=== PATIENT | female | born 1995 | race Caucasian/White ===

== ENCOUNTER 2017-12-11 01:30 | Emergency (ER) | payer OTHER ==
[2017-12-11] MEDS ORDERED: NS 0.9% 1000 ML* 1,000 ML IV ONE (02:36)
[2017-12-11 02:40] LABS: Urine Appearance Clear; Urine Blood Negative (Negative); Urine Color Yellow; Urine Ketones Trace (Negative); Urine Protein Negative (Negative); Urine Specific Gravity 1.029 (1.010-1.030); Urine Urobilinogen Negative (Negative)
[2017-12-11 02:41] LABS: ABS Basophils 0.1 10^3/ul (0-0.2); ABS Eosinophils 0.1 10^3/ul (0-0.6); ABS Lymphocytes 1.5 10^3/ul (1.0-4.8); ABS Monocytes 0.6 10^3/ul (0-0.8); ABS Neutrophils 6.7 10^3/ul (1.5-7.7); ABS Nucleated RBC 0 10^3/ul; Eosinophil % 0.6 % (0-6); Hematocrit 40 % (35-47); Hemoglobin 13.1 g/dl (12.0-16.0); Lymphocyte % 16.6 % (25-47); Mean Corpuscular HGB Conc 33 g/dl (31-36); Mean Corpuscular Hemoglobin 26 pg (27-31); Mean Corpuscular Volume 80 fL (80-97); Mean Platelet Volume 9.5 um3 (7.4-10.4); Nucleated Red Blood Cells % 0; Platelet Count 269 10^3/ul (150-450); Red Blood Count 5.01 10^6/ul (4.0-5.4); Red Cell Distribution Width 16 % (10.5-15)
[2017-12-11 03:35] LABS: EGFR Non-African American 90.1 (>60)
[2017-12-11] MEDS ORDERED: Iohexol 300* (CONTRAST) 10 ML SDV IV ONE (03:41)
[2017-12-11 06:21] VITALS: BP 103/74
--- NOTE | 2017-12-11 06:23 | ED ---
Willem Plaza Rebecca, scribed for JannethJorge on 12/11/17 at 0236 . Abdominal Pain/Female - HPI Summary HPI Summary: Pt is a 22 y/o F who presents to ED c/o bloody sputum production and abdominal pain. Pain is in the umbilical region and began tonight while at work. Pain is currently moderate, ranked 5/10. 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 Additionally c/o back pain. Is not using any blood thinners. - History of Current Complaint Chief Complaint: EDAbdPain Stated Complaint: ABD PAIN Time Seen by Provider: 12/11/17 02:23 Hx Obtained From: Patient Hx Last Menstrual Period: 10/08/14 Onset/Duration: Still Present Severity Currently: Moderate Pain Intensity: 5 Pain Scale Used: 0-10 Numeric Location: Umbilical Radiates: No Associated Signs and Symptoms: Positive: Back Pain, Other: - Bloody sputum production Allergies/Adverse Reactions: Allergies Allergy/AdvReac Type Severity Reaction Status Date / Time No Known Allergies Allergy Verified 11/06/14 09:29 PMH/Surg Hx/FS Hx/Imm Hx Endocrine/Hematology History: Denies: Hx Diabetes Neurological History: Reports: Hx Migraine Infectious Disease History: No Infectious Disease History: Denies: Traveled Outside the [place] in Last 30 Days - Family History Known Family History: Positive: Diabetes - Social History Alcohol Use: None Substance Use Type: Reports: None Smoking Status (MU): Never Smoked Tobacco Review of Systems Positive: Other - Bloody sputum production Positive: Abdominal Pain Positive: Other - Back pain All Other Systems Reviewed And Are Negative: Yes Physical Exam - Summary Physical Exam Summary: Appearance: Well appearing, no pain distress Skin: warm, dry, reflects adequate perfusion Head/face: normal Eyes: EOMI, JANNY ENT: normal Neck: supple, non-tender Respiratory: CTA, breath sounds present Cardiovascular: RRR, pulses symmetrical ~ Abdomen: tenderness in the umbilical region and RLQ, soft Bowel: present Musculoskeletal: normal, strength/ROM intact Neuro: normal, sensory motor intact, A&Ox3 Triage Information Reviewed: Yes Vital Signs On Initial Exam: Initial Vitals Temp Pulse Resp BP Pulse Ox 98.5 F 100 18 153/89 100 12/11/17 01:31 12/11/17 01:31 12/11/17 01:31 12/11/17 01:31 12/11/17 01:31 Vital Signs Reviewed: Yes Diagnostics - Vital Signs Vital Signs Temp Pulse Resp BP Pulse Ox 12/11/17 01:31 98.5 F 100 18 153/89 100 - Laboratory Lab Results: Lab Results 12/11/17 12/11/17 12/11/17 Range/Units 02:18 02:18 02:18 WBC 9.0 (3.5-10.8) 10^3/ul RBC 5.01 (4.0-5.4) 10^6/ul Hgb 13.1 (12.0-16.0) g/dl Hct 40 (35-47) % MCV 80 (80-97) fL MCH 26 L (27-31) pg MCHC 33 (31-36) g/dl RDW 16 H (10.5-15) % Plt Count 269 (150-450) 10^3/ul MPV 9.5 (7.4-10.4) um3 Neut % (Auto) 75.3 (38-83) % Lymph % (Auto) 16.6 L (25-47) % [place] % (Auto) 6.9 (0-7) % Eos % (Auto) 0.6 (0-6) % Baso % (Auto) 0.6 (0-2) % Absolute Neuts (auto) 6.7 (1.5-7.7) 10^3/ul Absolute Lymphs (auto) 1.5 (1.0-4.8) 10^3/ul Absolute Monos (auto) 0.6 (0-0.8) 10^3/ul Absolute Eos (auto) 0.1 (0-0.6) 10^3/ul Absolute Basos (auto) 0.1 (0-0.2) 10^3/ul Absolute Nucleated RBC 0 10^3/ul Nucleated RBC % 0 Sodium 138 L (139-145) mmol/L Potassium 3.6 (3.5-5.0) mmol/L Chloride 105 (101-111) mmol/L Carbon Dioxide 23 (22-32) mmol/L Anion Gap 10 (2-11) mmol/L BUN 10 (6-24) mg/dL Creatinine 0.81 (0.51-0.95) mg/dL Est GFR ( Amer) 115.9 (>60) Est GFR (Non-Af Amer) 90.1 (>60) BUN/Creatinine Ratio 12.3 (8-20) Glucose 102 H (70-100) mg/dL Calcium 9.5 (8.6-10.3) mg/dL Total Bilirubin 0.30 (0.2-1.0) mg/dL AST 14 (13-39) U/L ALT 15 (7-52) U/L Alkaline Phosphatase 64 (34-104) U/L C-Reactive Protein 10.84 H (< 5.00) mg/L Total Protein 7.7 (6.4-8.9) g/dL Albumin 4.6 (3.2-5.2) g/dL Globulin 3.1 (2-4) g/dL Albumin/Globulin Ratio 1.5 (1-3) Lipase 16 (11.0-82.0) U/L Beta HCG, Quant < 0.60 mIU/mL Urine Color Yellow Urine Appearance Clear Urine pH 5.0 (5-9) Ur Specific [place] 1.029 (1.010-1.030) Urine Protein Negative (Negative) Urine Ketones Trace A (Negative) Urine Blood Negative (Negative) Urine Nitrate Negative (Negative) Urine Bilirubin Negative (Negative) Urine Urobilinogen Negative (Negative) Ur Leukocyte Esterase Negative (Negative) Urine Glucose Negative (Negative) Result Diagrams: 18 02:18 18 02:18 Lab Statement: Any lab studies that have been ordered have been reviewed, and results considered in the medical decision making process. - Radiology CXR Xray Interpretation: No Acute Changes Radiology Interpretation Completed By: ED Physician - CT CT Abd/Pel CT Interpretation Completed By: Radiologist - 14 mm involuting right ovarian cyst without free fluid. No definite evidence of acute pathology. ED physician reviewed this radiology report. - Ultrasound No standard instances Ultrasound Interpretation: No Acute Changes - Pelvic US: Small right ovarian cyst without torsion or free fluid. ED physician reviewed this radiology report. Ultrasound Interpretation Completed By: Radiologist Re-Evaluation - Re-Evaluation First Eval Re-Evaluation Time: 04:32 Comment: Discussed results. Pt continues to be in pain and tender. Second Eval Re-Evaluation Time: 06:08 Change: Improved Comment: Discussed US results and D/C plan with the pt. Abdominal Pain Fem Course/Dx - Course Course Of Treatment: Pt is a 22 y/o F who presents to ED c/o bloody sputum production and umbilical abdominal pain since tonight. Pain is currently moderate, ranked 5/10. 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 Additionally c/o back pain. Is not using any blood thinners. Blood work and UA were done. CXR reveals no acute findings. CT Abd/Pel reveals 14 mm involuting right ovarian cyst without free fluid. Pelvic US reveals small right ovarian cyst without torsion or free fluid. In the ED course, pt received fluids. She will be D/C to home with Dx of abdominal pain and ovarian cyst with Rx for Motrin a follow up with her PCP. She understands and agrees. - Diagnoses Differential Diagnosis: Positive: Appendicitis, Ovarian Cyst, Renal Colic, Urinary Tract Infection Provider Diagnoses: Abdominal pain, Ovarian cyst Discharge - Sign-Out/Discharge Documenting (check all that apply): Discharge/Admit/Transfer - Discharge - Discharge Plan Condition: Stable Disposition: HOME Prescriptions: Pantoprazole Sodium [Protonix] 40 mg PO ONCE #30 granpkt. Patient Education Materials: Ovarian Cyst (ED), Acute Abdominal Pain (ED) Referrals: Delfino Isaac MD [Primary Care Provider] - 3 Days Additional Instructions: RETURN TO ED FOR ANY RETURNING OR WORSENING SYMPTOMS. - Billing Disposition and Condition Condition: STABLE Disposition: HOME The documentation as recorded by the Willem allen Rebecca accurately reflects the service I personally performed and the decisions made by Janneth hernandez Emmanuel.
--- NOTE | 2017-12-11 07:49 | RAD ---
INDICATION: Abdominal pain COMPARISON: None TECHNIQUE: PA and lateral views of the chest were obtained. FINDINGS: The heart and mediastinum are normal in size and contour. The lungs are grossly clear. There is no evidence of large pleural effusion. Visualized bones are normal for the patient's age. There is no radiographic evidence of free air beneath the diaphragm IMPRESSION: No radiographic evidence of acute cardiopulmonary disease.
--- NOTE | 2017-12-11 07:49 | RAD ---
INDICATION: Right pelvic pain COMPARISON: None. TECHNIQUE: Real-time transabdominal only ultrasound examination of the female pelvis including grayscale and Doppler color flow imaging. FINDINGS: Uterus: The uterus is normal in size and echogenicity measuring 7.5 x 3.6 x 4.6 cm. The endometrial stripe is smooth and uniform measuring 13 mm in thickness. Ovaries: The right and left ovary measure 3.8 x 2.0 x 3.7 cm and 3.2 x 1.8 x 2.3 cm, respectively. Normal arterial and venous waveforms are identified. Within the right ovary there is a mostly anechoic and avascular structure measuring 1.4 cm in greatest dimension most consistent with a dominant follicle in a woman of this age. There is no free fluid in the cul-de-sac. IMPRESSION: Top normal endometrial stripe thickness in this otherwise normal and age-appropriate transabdominal only pelvic ultrasound.
--- NOTE | 2017-12-11 07:54 | RAD ---
CLINICAL HISTORY: Nausea and abdominal pain COMPARISON: Same day pelvic ultrasound that shows a right ovarian follicle TECHNIQUE: Contrast enhanced CT examination of the abdomen and pelvis from the lung bases through the initial tuberosities. The patient received 140 mL Omnipaque 300 intravenously prior to imaging.The patient received oral contrast as well prior to imaging. FINDINGS: VISUALIZED LUNG BASES: The visualized lung bases are grossly clear. There is no pleural effusion. ABDOMEN AND PELVIS: The liver, spleen, pancreas and adrenal glands are grossly normal in appearance. The gallbladder is normal. The kidneys are normal in appearance without focal mass, calcification or signs of hydronephrosis. Evaluation of the gastrointestinal tract is limited without oral contrast. The small and large bowel are not distended. The patient's normal appendix is identified in the right lower quadrant measuring 6 mm in diameter with gas in the distal tip (axial image 73 and coronal image 52). The gas and stool-filled colon is normal in appearance. There is no gross retroperitoneal lymphadenopathy. Top normal mesenteric lymph nodes are identified measuring up to 11 mm in short axis diameter in the right lower quadrant (coronal image 50 for example). Corresponding to same day pelvic ultrasound, there is a low-attenuation structure in the right lower quadrant consistent with a follicle in a woman of this age. The abdominal aorta and iliac arteries are normal in course and diameter. There are no sinister bone lesions. IMPRESSION: 1. In the correct clinical setting CT findings could be compatible with mesenteric adenitis. 2. Ovarian follicle identified in the right lower quadrant corresponds to the follicle better depicted on the same day pelvic ultrasound.
== END 2017-12-11 06:21 | disposition home or self-care (01) ==
LOC: ED 01:30
DX: R10.33 Periumbilical pain (principal); N83.01 Follicular cyst of right ovary; Z32.02 Encounter for pregnancy test, result negative; R04.2 Hemoptysis; M54.9 Dorsalgia, unspecified; G43.909 Migraine, unspecified, not intractable, without status migrainosus
CPT/HCPCS: 36415; 71046; 74177; 76856; 80053; 81003; 83690; 84702; 85025; 86140; 96360; 99282; Q9967

== ENCOUNTER 2018-07-18 17:03 | Emergency (ER) | payer OTHER ==
--- OUTSIDE RECORDS SUMMARY | 2018-07-18 17:22 | XMS REPORT | Continuity of Care Document ---
:1995 External Reference #:[id number] Author Name Dina Mauricio Care Team Providers Name Role Phone Delfino Isaac MD Primary Care Physician Unavailable Payers Type Date Identification Numbers Payment Provider Subscriber Policy Number: [id number] [facility] Chela Barillas Group Number: [id number] [address] PayID: [id number] [place] [address] Advance Directives Description No Information Available Problems Date Description Provider Status Onset: 03/19/2018 Migraine with typical aura Anders Lim M.D. 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 martinez every other week Allergies, Adverse Reactions, Alerts Description No Known Drug Allergies Medications Medication Date Status Form Strength Qnty SIG Indications Ordering Provider Propranolol Active Tablets 10mg 240tabs 1 po bid G43.109 Anders S. HCL 018 for 1 wk [place], then 2 bid M.D. for 1 wk then 3 bid for 1 wk then 4 bid Ibuprofen 00/00/0 Active Tablets 200mg as needed Unknown 000 Topiramate Hx Tablets 25mg 120tabs 1 qhs for 1 G43.109 Anders S. 018 - week then 2 [place], qhs for 1 M.D. 018 week then 3 qhs for 1 week then 4 qhs Naproxen Hx Tablets 500mg 60tabs 1 twice a G43.109 Anders Nance - day as , needed for M.D. 018 headache Topamax Hx Tablets 50mg 60tabs 1 tab by G43.009 Goyo Isaac - mouth twice Delfino Cox, a day MD Nance Sertraline HCL 0 Hx Tablets 100mg 1 by mouth Unknown 000 - every day 018 Trazodone HCL 0 Hx Tablets 50mg 1-2 tablets Unknown 000 - at bedtime as needed 018 Immunizations Description No Information Available Vital Signs Date Vital Result Comment 07/09/2018 3:06pm Height 63 inches 5'3" Weight 220.00 lb Heart Rate 80 /min BP Systolic 118 mmHg BP Diastolic 80 mmHg Respiratory Rate 16 /min BMI (Body Mass Index) 39.0 kg/m2 03/19/2018 12:56pm Height 63 inches 5'3" Weight 228.00 lb Heart Rate 72 /min BP Systolic Sitting 112 mmHg BP Diastolic Sitting 84 mmHg Respiratory Rate 16 /min BMI (Body Mass Index) 40.4 kg/m2 Results Description No Information Available Procedures Date Code Description Status 05/03/2018 18510 EEG Recording Awake & Drowsy Completed Encounters Type Date Location Provider Dx Diagnosis Office Visit 03/19/2018 [facility] Anders Smiley G43.109 Migraine with 1:00p [facility] Lim M.D. aura, not intractable, w/o status migrainosus F41.9 Anxiety disorder, unspecified Plan of Treatment Future Appointment(s):09/17/2018 1:45 pm - Anders Lim M.D. at [facility]07/09/2018 - Anders Lim M.D.G43.109 Migraine with aura, not intractable, without status migrainoNew Medication:Propranolol HCL 10 mg - 1 po bid for 1 wk then 2 bid for 1 wk then 3 bid for 1 wk then 4 bidFollow up:2 - 3 [id number] Anxiety disorder, unspecified
[2018-07-18 18:19] VITALS: BP 130/65
--- NOTE | 2018-07-18 19:12 | UC ---
Throat Pain/Nasal Richie HPI - HPI Summary HPI Summary: Pt c/o sudden onset sore throat, right side tonsil pain with "white spots on right tonsil" that began this morning. - History of Current Complaint Chief Complaint: UCGeneralIllness Stated Complaint: SORE THROAT Time Seen by Provider: 07/18/18 18:37 Hx Obtained From: Patient Hx Last Menstrual Period: 07/17/18 ?: No Onset/Duration: Sudden Onset Severity: Moderate Pain Intensity: 5 Cough: None Associated Signs & Symptoms: Positive: Dysphagia - Epiglottits Risk Factors Epiglottis Risk Factors: Sudden Onset - Allergies/Home Medications Allergies/Adverse Reactions: Allergies Allergy/AdvReac Type Severity Reaction Status Date / Time No Known Allergies Allergy Verified 07/18/18 18:19 PMH/Surg Hx/FS Hx/Imm Hx Previously Healthy: Yes - Surgical History Surgical History: None - Family History Known Family History: Positive: Diabetes - Social History Occupation: Employed Full-time Lives: With Family Alcohol Use: None Substance Use Type: None Smoking Status (MU): Never Smoked Tobacco Have You Smoked in the Last Year: No Household Exposure Type: Cigarettes - Immunization History Vaccination Up to Date: Yes Review of Systems All Other Systems Reviewed And Are Negative: Yes Constitutional: Positive: Negative Skin: Positive: Negative Eyes: Positive: Negative ENT: Positive: Sore Throat Respiratory: Positive: Negative Cardiovascular: Positive: Negative Gastrointestinal: Positive: Negative Genitourinary: Positive: Negative Motor: Positive: Negative Neurovascular: Positive: Negative Musculoskeletal: Positive: Negative Neurological: Positive: Negative Psychological: Positive: Negative Is Patient Immunocompromised?: No Physical Exam Triage Information Reviewed: Yes Appearance: Well-Appearing Vital Signs: Initial Vital Signs Temp 98.0 F 07/18/18 18:16 Pulse 98 07/18/18 18:16 Resp 17 07/18/18 18:16 BP 130/65 07/18/18 18:16 Pulse Ox 98 07/18/18 18:16 Vital Signs Reviewed: Yes Eye Exam: Normal ENT Exam: Other ENT: Positive: Tonsillar swelling Dental Exam: Normal Neck exam: Normal Respiratory Exam: Normal Cardiovascular Exam: Normal Musculoskeletal Exam: Normal Neurological Exam: Normal Psychological Exam: Normal Skin Exam: Normal Throat Pain/Nasal Course/Dx - Course Course Of Treatment: rapid strep : negative - Differential Dx/Diagnosis Differential Diagnosis/HQI/PQRI: Pharyngitis, Tonsillitis Provider Diagnosis: Tonsillitis Discharge - Sign-Out/Discharge Documenting (check all that apply): Patient Departure All imaging exams completed and their final reports reviewed: No Studies - Discharge Plan Condition: Stable Disposition: HOME Prescriptions: predniSONE TAB* [Deltasone 20 MG TAB*] 20 mg PO DAILY #4 tab Patient Education Materials: Tonsillitis (ED) Referrals: Delfino Isaac MD [Primary Care Provider] - If Needed - Billing Disposition and Condition Condition: STABLE Disposition: Home
== END 2018-07-18 19:19 | disposition home or self-care (01) ==
LOC: UCCORT 17:03
DX: J03.90 Acute tonsillitis, unspecified (principal)
CPT/HCPCS: 87651; 99212; G0463

== ENCOUNTER 2019-10-15 05:13 | Emergency (ER) | payer OTHER ==
--- NOTE | 2019-10-15 06:23 | ED ---
Syncope/Near Syncope - HPI Summary HPI Summary: Patient is a 24-year-old female who presents emergency department for lightheadedness and dizziness since yesterday. Patient states she feels dizzy as and she may pass out. Patient notes symptoms started yesterday while at work. Patient works overnight at [employer]. Patient denies associated chest pain, shortness of breath, abdominal pain, vomiting, diarrhea, headache. She does note nausea. Past medical history of migraines. Patient denies we'll send illness, cough, fever, sore throat, urinary symptoms. Patient denies change in diet or activity. Symptoms are moderate in severity. No current modifying factors. - History Of Current Complaint Chief Complaint: EDDizziness Time Seen by Provider: 10/15/19 05:41 Hx Obtained From: Patient - Allergies/Home Medications Allergies/Adverse Reactions: Allergies Allergy/AdvReac Type Severity Reaction Status Date / Time No Known Allergies Allergy Verified 10/15/19 05:31 Home Medications: Home Medications Levonorgestrel-Ethin Estradiol [Kurvelo Tablet] 1 tab PO DAILY 10/15/19 [ History Confirmed 10/15/19] Topiramate TAB(*) [Topamax 100 mg tab] 100 mg PO BEDTIME 10/15/19 [History Confirmed 10/15/19] PMH/Surg Hx/FS Hx/Imm Hx Previously Healthy: Yes Endocrine/Hematology History: Denies: Hx Diabetes Cardiovascular History: Denies: Hx Hypertension, Hx Pacemaker/ICD History: Denies: Hx Renal Disease Sensory History: Denies: Hx Hearing Aid Neurological History: Reports: Hx Migraine Psychiatric History: Denies: Hx Panic Disorder - Immunization History Immunizations Up to Date: Yes Infectious Disease History: No Infectious Disease History: Denies: Traveled Outside the [place] in Last 30 Days - Family History Known Family History: Positive: Diabetes, Non-Contributory - Social History Occupation: Employed Full-time Lives: With Family Alcohol Use: None Substance Use Type: Reports: None Smoking Status (MU): Never Smoked Tobacco Have You Smoked in the Last Year: No Review of Systems Constitutional: Negative Negative: Fever, Chills Eyes: Negative ENT: Negative Cardiovascular: Negative Negative: Palpitations, Chest Pain Respiratory: Negative Negative: Shortness Of Breath, Cough Positive: Nausea. Negative: Abdominal Pain, Vomiting, Diarrhea Genitourinary: Negative Negative: dysuria Musculoskeletal: Negative Skin: Negative Neurological/Mental Status: Other - dizzy/lightheaded All Other Systems Reviewed And Are Negative: Yes Physical Exam Triage Information Reviewed: Yes Vital Signs On Initial Exam: Initial Vitals Temp Pulse Resp BP Pulse Ox 98.5 F 98 20 134/81 98 10/15/19 05:15 10/15/19 05:15 10/15/19 05:15 10/15/19 05:15 10/15/19 05:15 Vital Signs Reviewed: Yes Appearance: Positive: Well-Appearing - Pt. sitting up in bed in NAD. Skin: Positive: Warm, Dry Head/Face: Positive: Normal Head/Face Inspection Eyes: Positive: Normal, EOMI, JANNY, Conjunctiva Clear ENT: Positive: Pharynx normal, TMs normal Neck: Positive: Supple. Negative: Nuchal Rigidity Respiratory/Lung Sounds: Positive: Clear to Auscultation, Breath Sounds Present Cardiovascular: Positive: Normal, RRR Abdomen Description: Positive: Nontender, Soft Musculoskeletal: Negative: Edema Left, Edema Right Neurological: Positive: Normal, CN Intact II-III Psychiatric: Positive: Affect/Mood Appropriate Procedures - Sedation Patient Received Moderate/Deep Sedation with Procedure: No Diagnostics - Vital Signs Vital Signs Temp Pulse Resp BP Pulse Ox 10/15/19 05:29 106 117/79 10/15/19 05:27 94 117/79 94 10/15/19 05:26 93 114/57 95 10/15/19 05:24 93 98 10/15/19 05:15 98.5 F 98 20 134/81 98 - Laboratory Result Diagrams: 10/15/19 07:20 10/15/19 07:20 Lab Statement: Any lab studies that have been ordered have been reviewed, and results considered in the medical decision making process. Course/Dx Course Of Treatment: Pt. with complaints of lightheaded/dizzy. Exam unremarkable. Afebrile. Mildy tachycardic. Denies CP or SOB. Pt. given IV fluids. ECG done at 0611 shows a sinus rhythm of 90bpm, normal axis, appropriate intervals, no ST changes. Labs unremarkable. Orthostatic VS normal. On re-exam pt. feeling better. Will dc home to . with pcp. To increase fluids and rest. To return to ER if symptoms change or worsen. Pt. understands and agrees with plan. - Diagnoses Differential Diagnosis/HQI/PQRI: Positive: Ectopic , Hypoglycemia, Metabolic Reaction, Vasovagal Episode Provider Diagnoses: Near syncope Discharge ED - Sign-Out/Discharge Documenting (check all that apply): Patient Departure - Discharge Plan Condition: Improved Disposition: HOME Patient Education Materials: Near Syncope (ED) Forms: *Work Release Referrals: Delfino Isaac MD [Primary Care Provider] - Additional Instructions: Schedule a follow up appointment with PCP for recheck within one week Increase fluids and rest Return to ER if symptoms change or worsen - Billing Disposition and Condition Condition: IMPROVED Disposition: Home
[2019-10-15] MEDS ORDERED: NS 0.9% 1000 ML** 1,000 ML IV ONE (06:50)
[2019-10-15 07:34] LABS: ABS Lymphocytes 1.1 10^3/ul (1.0-4.8); ABS Monocytes 0.6 10^3/ul (0-0.8); ABS Neutrophils 5.9 10^3/ul (1.5-7.7); Eosinophil % 0.4 %; Hematocrit 37 % (35-47); Hemoglobin 12.2 g/dL (12.0-16.0); Lymphocyte % 13.9 %; Mean Corpuscular HGB Conc 33 g/dL (31-36); Mean Corpuscular Hemoglobin 27 pg (27-31); Mean Corpuscular Volume 81 fL (80-97); Platelet Count 258 10^3/uL (150-450); Red Blood Count 4.51 10^6 /uL (3.70-4.87); Red Cell Distribution Width 15 % (10-15); White Blood Count 7.6 10^3/uL (3.5-10.8)
[2019-10-15 07:35] LABS: Albumin 4.6 g/dL (3.2-5.2); CO2 Carbon Dioxide 21 mmol/L (22-32); Calcium 9.2 mg/dL (8.6-10.3); Chloride 106 mmol/L (101-111); Sodium 137 mmol/L (135-145)
[2019-10-15 07:39] LABS: Anion Gap 10 mmol/L (2-11)
[2019-10-15 07:41] LABS: ALT 20 U/L (7-52); Albumin/Globulin Ratio 1.7 (1-3); Alkaline Phosphatase 63 U/L (34-104); Blood Urea Nitrogen 12 mg/dL (6-24); EGFR Non-African American 118.2 (>60); Globulin 2.7 g/dL (2-4); Glucose 93 mg/dL (70-100); Total Protein 7.3 g/dL (6.4-8.9)
[2019-10-15 07:42] LABS: Urine Appearance Cloudy; Urine Bilirubin Negative (Negative); Urine Blood Negative (Negative); Urine Color Yellow; Urine Glucose Negative (Negative); Urine Ketones Negative (Negative); Urine Nitrite Negative (Negative); Urine Protein Negative (Negative); Urine Specific Gravity 1.028 (1.010-1.030); Urine Urobilinogen Negative (Negative)
[2019-10-15 07:44] LABS: HCG Pregnancy < 0.60 mIU/mL
[2019-10-15 08:01] LABS: Magnesium 1.7 mg/dL (1.9-2.7); Potassium Redraw 4.1 mmol/L (3.5-5.0)
[2019-10-15 08:35] LABS: TSH (Thyroid Stimulating Horm) 2.67 mcIU/mL (0.34-5.60)
[2019-10-15 09:17] VITALS: BP 105/65
== END 2019-10-15 09:16 | disposition home or self-care (01) ==
LOC: ED 05:13
DX: R55 Syncope and collapse (principal); R11.0 Nausea
CPT/HCPCS: 36415; 80053; 81003; 83735; 84443; 84702; 85025; 93005; 96360; 96361; 99282

== ENCOUNTER 2020-03-31 23:44 | Inpatient (IN) ==
[2020-04-01 00:47] LABS: ABS Eosinophils 0.1 10^3/ul (0-0.6); ABS Lymphocytes 1.3 10^3/ul (1.0-4.8); ABS Monocytes 0.5 10^3/ul (0-0.8); ABS Neutrophils 6.1 10^3/ul (1.5-7.7); Eosinophil % 0.6 %; Hematocrit 38 % (35-47); Hemoglobin 12.9 g/dL (12.0-16.0); Lymphocyte % 16.8 %; Mean Corpuscular HGB Conc 34 g/dL (31-36); Mean Corpuscular Hemoglobin 27 pg (27-31); Mean Corpuscular Volume 80 fL (80-97); Mean Platelet Volume 8.9 fL (7.4-10.4); Platelet Count 274 10^3/uL (150-450); Red Blood Count 4.75 10^6 /uL (3.70-4.87); Red Cell Distribution Width 14 % (10-15)
[2020-04-01 00:50] LABS: Urine Appearance Clear; Urine Bilirubin Negative (Negative); Urine Blood 3+ (Negative); Urine Color Yellow; Urine Glucose Negative (Negative); Urine Ketones Negative (Negative); Urine Nitrite Negative (Negative); Urine Protein Negative (Negative); Urine Specific Gravity 1.025 (1.010-1.030); Urine Urobilinogen Negative (Negative)
[2020-04-01 00:55] LABS: Urine Bacteria Absent (Absent); Urine Red Blood Cell Trace(0-2/hpf) (Absent); Urine Squamous Epithelial Cell Present (Absent); Urine White Blood Cell Trace(0-5/hpf) (Absent)
[2020-04-01 01:04] LABS: ALT 16 U/L (7-52); AST 15 U/L (13-39); Albumin 4.1 g/dL (3.2-5.2); Albumin/Globulin Ratio 1.4 (1-3); Alkaline Phosphatase 67 U/L (34-104); Anion Gap 7 mmol/L (2-11); BUN/Creatinine Ratio 15.8 (8-20); Blood Urea Nitrogen 12 mg/dL (6-24); CO2 Carbon Dioxide 24 mmol/L (22-32); Calcium 8.9 mg/dL (8.6-10.3); Chloride 108 mmol/L (101-111); EGFR African American 115.1 (>60); EGFR Non-African American 95.2 (>60); Globulin 2.9 g/dL (2-4); Glucose 102 mg/dL (70-100); Potassium 3.5 mmol/L (3.5-5.0); Sodium 139 mmol/L (135-145)
[2020-04-01 01:14] LABS: Acetaminophen < 15 mcg/mL; Alcohol, S < 10 mg/dL (<10); Salicylate < 2.50 mg/dL (<30)
[2020-04-01 01:26] LABS: Urine Benzodiazepine Screen None Detected (None Detect); Urine Cannabinoids Screen None Detected (None Detect); Urine Opiates Screen None Detected (None Detect)
[2020-04-01] MEDS ORDERED: Al Hydrox/Mg Hydrox/Simet LIQ 30 ML UDC PO PRN (06:25)
[2020-04-01] MEDS ORDERED: Nicotine GUM 2MG FRUIT FLAVOR PO PRN (07:00)
[2020-04-01] MEDS ORDERED: Nicotine PATCH 14 MG/24 HR PATCH TRANSDERM SCH (09:00)
[2020-04-01] MEDS ORDERED: Vitamin THERAPEUTIC TAB PO SCH (09:00)
[2020-04-01 09:14] VITALS: BP 135/82
== END 2020-04-01 17:10 | disposition home or self-care (01) | DRG 755 ==
LOC: ED 23:44 → BSU 04-01 05:16
PROVIDERS: ADMIT Psychiatry & Neurology Psychiatry; ATTEND Psychiatry & Neurology Psychiatry

== ENCOUNTER 2023-04-25 05:20 | Inpatient (IN) ==
[2023-04-25 07:17] LABS: ABS Lymphocytes 1.5 10^3/uL (1.0-4.8); ABS Monocytes 0.7 10^3/uL (0.0-0.9); ABS Nucleated RBC 0.01 10^3/ul; Eosinophil % 0.4 %; Hematocrit 34.9 % (35-45); Hemoglobin 11.8 g/dL (11.5-14.3); Lymphocyte % 13.5 %; Mean Corpuscular Hemoglobin 27.3 pg (27-33); Mean Corpuscular Hgb Conc 33.7 g/dL (31-36); Mean Corpuscular Volume 80.9 fL (80-97); Mean Platelet Volume 9.5 fL (7.5-11.2); Nucleated Red Blood Cells % 0.1 /100 WBC (0.0-0.4); Platelet Count 205 10^3/uL (150-450); Red Blood Count 4.31 10^6/uL (3.63-4.92); Red Cell Distribution Width 17.2 % (12-17); White Blood Count 11.3 10^3/uL (3.8-11.8)
[2023-04-25] MEDS ORDERED: Sodium Citrate/Citric Acid LIQ 15 ML UDC PO ONE (07:26)
[2023-04-25] MEDS ORDERED: Morphine PF AMP (0.5MG/ML) 5 MG/10 ML AMP ONE (07:26)
[2023-04-25] MEDS ORDERED: ceFOXitin 2 GM IVPREMIX 2 GM/50 ML BAG IVPB ONE (07:26)
[2023-04-25] MEDS ORDERED: Ondansetron 4 mg VIAL 2 MG/ML 2 ml VIAL IV PRN (07:27)
[2023-04-25] MEDS ORDERED: Metoclopramide 5 MG/ML VIAL (10 mg) IV PRN (07:27)
[2023-04-25] MEDS ORDERED: Acetaminophen IV 1 GM/100ML 1,000 MG/100 ML BAG IV PRN (07:27)
[2023-04-25] MEDS ORDERED: Naloxone 0.4 mg VIAL 0.4 mg/ml 1 ml VIAL IV PUSH PRN (07:27)
[2023-04-25] MEDS ORDERED: Oxytocin 10 UNITS/ML 1 ML VIAL ONE ×2 (08:32→08:47)
[2023-04-25] MEDS ORDERED: Ondansetron 4 mg VIAL 2 MG/ML 2 ml VIAL ONE (08:32)
[2023-04-25] MEDS ORDERED: Dexamethasone IV 4 MG/ML VIAL 1 ml VIAL ONE (08:32)
[2023-04-25] MEDS ORDERED: Acetaminophen IV 1 GM/100ML 1,000 MG/100 ML BAG IV ONE (08:33)
[2023-04-25] MEDS ORDERED: Phenylephrine 40 mcg/mL 10mL (400mcg) SYRINGE ONE (08:52)
[2023-04-25] MEDS ORDERED: Witch Hazel PAD JAR TOPICAL PRN (09:10)
[2023-04-25] MEDS ORDERED: Dibucaine 1% OINT 28.35 GM TUBE PR PRN (09:10)
[2023-04-25] MEDS ORDERED: Glycerin ADULT 2.4 gm SUPP PR PRN (09:10)
[2023-04-25] MEDS ORDERED: Varicella Virus Vaccine Live 0.5 ML VIAL SUBCUT ONE (10:00)
[2023-04-25] MEDS ORDERED: Lactated Ringers 1000 ml BAG 1,000 ML IV SCH (10:00)
[2023-04-25 10:18] LABS: Urine Appearance Clear; Urine Bilirubin Negative (Negative); Urine Blood 1+ (Negative); Urine Color Yellow; Urine Glucose Negative (Negative); Urine Ketones Trace (Negative); Urine Nitrite Negative (Negative); Urine Protein Negative (Negative); Urine Specific Gravity 1.012 (1.002-1.030); Urine Urobilinogen Negative (Negative)
[2023-04-25 10:23] LABS: Urine Bacteria Absent (Absent); Urine Red Blood Cell 2+(6-10/hpf) (Absent); Urine Squamous Epithelial Cell Present (Absent); Urine White Blood Cell Trace(0-5/hpf) (Absent)
[2023-04-25] MEDS: Oxytocin in LR 20,000 MILLI.UNIT/1,000 ML BAG IV SCH ×3 (15:26→15:29)
[2023-04-26 06:48] LABS: ABS Lymphocytes 1.4 10^3/uL (1.0-4.8); ABS Monocytes 0.7 10^3/uL (0.0-0.9); ABS Neutrophils 7.2 10^3/uL (1.5-7.6); Eosinophil % 0.4 %; Hematocrit 27.6 % (35-45); Hemoglobin 9.5 g/dL (11.5-14.3); Lymphocyte % 14.8 %; Mean Corpuscular Hemoglobin 27.9 pg (27-33); Mean Corpuscular Hgb Conc 34.3 g/dL (31-36); Mean Corpuscular Volume 81.5 fL (80-97); Mean Platelet Volume 8.9 fL (7.5-11.2); Platelet Count 174 10^3/uL (150-450); Red Blood Count 3.38 10^6/uL (3.63-4.92); Red Cell Distribution Width 17.2 % (12-17); White Blood Count 9.3 10^3/uL (3.8-11.8)
[2023-04-27 08:18] VITALS: BP 126/71
== END 2023-04-27 14:00 | disposition home or self-care (01) | DRG 540 ==
LOC: MCHOB 05:20
PROVIDERS: ADMIT Obstetrics & Gynecology; ATTEND Obstetrics & Gynecology